=== PATIENT | male | born 1995 | race American Indian/Alaskan Native ===

== ENCOUNTER 2021-12-08 08:22 | Emergency (ER) | payer BC ==
[2021-12-08 08:49] VITALS: BP 137/84
[2021-12-08] MEDS ORDERED: HYDROcodone/ACETAMINOPHEN 5-325 MG TAB PO ONE (12:18)
[2021-12-08] MEDS ORDERED: IBUPROFEN 800 MG TAB PO ONE (12:18)
[2021-12-08] MEDS ORDERED: CYCLOBENZAPRINE 10 MG TAB PO ONE (12:18)
--- NOTE | 2021-12-08 12:18 | Emergency Department Report ---
ED Back Pain/Injury HPI - General Chief Complaint: Back Pain/Injury Stated Complaint: LOWER BACK PAIN Time Seen by Provider: 12/08/21 11:49 Source: patient Limitations: No Limitations - History of Present Illness Initial Comments: 26 YO COMES IN WITH LOW BACK PAIN WORSE WITH MOVEMENT REPRODUCABLE ON EXAM HX OF THE SAME NO FEVER DOES NOT WAKE HIM AT NIGHT FROM SLEEP NO INCONTINENCE AMBULATORY -: Gradual, days(s) Similar Symptoms Previously: Yes Place: home Radiation: none Consistency: intermittent Improves With: immobilization Worsens With: movement Associated Symptoms: denies other symptoms - Related Data Previous Rx's Medication Instructions Recorded Last Taken Type Cyclobenzaprine [Flexeril] 10 mg PO TID PRN #10 tablet 12/08/21 Unknown Rx Ibuprofen [Motrin] 800 mg PO Q8HR PRN #30 tablet 12/08/21 Unknown Rx Allergies Allergy/AdvReac Type Severity Reaction Status Date / Time No Known Allergies Allergy Verified 12/08/21 08:49 ED Review of Systems ROS: Stated complaint: LOWER BACK PAIN Other details as noted in HPI Comment: All other systems reviewed and negative ED Past Medical Hx - Past Medical History Previous Medical History?: No - Surgical History Past Surgical History?: No - Family History Family history: no significant - Social History Smoking Status: Never Smoker Substance Use Type: Alcohol - Medications Home Medications: Home Medications Medication Instructions Recorded Confirmed Last Taken Type Cyclobenzaprine [Flexeril] 10 mg PO TID PRN #10 tablet 12/08/21 Unknown Rx Ibuprofen [Motrin] 800 mg PO Q8HR PRN #30 tablet 12/08/21 Unknown Rx ED Physical Exam - General Limitations: No Limitations General appearance: alert, in no apparent distress - Head Head exam: Present: atraumatic, normocephalic - Eye Eye exam: Present: normal appearance - ENT ENT exam: Present: mucous membranes moist - Neck Neck exam: Present: normal inspection - Respiratory Respiratory exam: Present: normal lung sounds bilaterally. Absent: respiratory distress - Cardiovascular Cardiovascular Exam: Present: regular rate, normal rhythm. Absent: systolic murmur, diastolic murmur, rubs, gallop - GI/Abdominal GI/Abdominal exam: Present: soft, normal bowel sounds - Rectal Rectal exam: Present: deferred - Extremities Exam Extremities exam: Present: normal inspection - Back Exam Back exam: Present: normal inspection - Neurological Exam Neurological exam: Present: alert, oriented X3 - Psychiatric Psychiatric exam: Present: normal affect, normal mood - Skin Skin exam: Present: warm, dry, intact, normal color. Absent: rash ED Course Vital Signs 12/08/21 08:47 Temperature 97.9 F Pulse Rate 64 Respiratory 16 Rate Blood Pressure 137/84 [Right] O2 Sat by Pulse 100 Oximetry ED Medical Decision Making - Medical Decision Making NO SYSTEMIC SYMPTOMS NO URINARY SYMPTOMS NO N/V NO TRAUMA/FALL NORMAL VS NO SPINE TENDERNESS NO INDICATION FOR IMAGING NEURO INTACT MEDICATED IN ER FOR PAIN DC HOME WITH DC PLAN OF CARE INCLUDING DIET, MEDS, ACTIVITY AND FOLLOW UP VERBALIZES UNDERSTANDING OF PLAN OF CARE Vital Signs (72 hours) 12/08/21 08:47 Temperature 97.9 F Pulse Rate 64 Respiratory 16 Rate Blood Pressure 137/84 [Right] O2 Sat by Pulse 100 Oximetry - Differential Diagnosis MSC. PAIN Critical care attestation.: If time is entered above; I have spent that time in minutes in the direct care of this critically ill patient, excluding procedure time. ED Disposition Clinical Impression: Lumbar strain Disposition: 01 HOME / SELF CARE / HOMELESS Is pt being admited?: No Does the pt Need Aspirin: No Condition: Undetermined Additional Instructions: MEDS ORDERED TODAY FOLLOW UP WITH DR MARSHALL/ORTHO OR PCP REFERRALS BELOW [employer] Referrals: ADELINA MARSHALL MD [Staff Physician] - 3-5 Days CAITLIN JALLOH MD [Staff Physician] - 3-5 Days Forms: Work/School Release Form(ED) Time of Disposition: 12:52
== END 2021-12-08 14:02 | disposition home or self-care (01) ==
LOC: ED 08:22
DX: S39.012A Strain of muscle, fascia and tendon of lower back, initial encounter (principal); Z72.89 Other problems related to lifestyle; Z79.899 Other long term (current) drug therapy; X58.XXXA Exposure to other specified factors, initial encounter; Y93.89 Activity, other specified; Y92.89 Other specified places as the place of occurrence of the external cause; Y99.8 Other external cause status
CPT/HCPCS: 99282